=== PATIENT | male | born 1985 ===

== ENCOUNTER 2021-12-28 02:15 | Emergency (ER) | payer SELFPAY ==
[2021-12-28] MEDS ORDERED: ASPIRIN 81 MG TAB CHEW PO ONE ×2 (03:06→05:30)
[2021-12-28] MEDS ORDERED: MORPHINE 4 MG/1 ML INJ IV ONE ×2 (03:11→05:30)
--- NOTE | 2021-12-28 03:38 | XRay Report ---
CHEST 1 VIEW 12/28/2021 3:17 AM INDICATION / CLINICAL INFORMATION: Chest Pain. COMPARISON: None available. FINDINGS: SUPPORT DEVICES: None. HEART / MEDIASTINUM: No significant abnormality. LUNGS / PLEURA: No significant pulmonary or pleural abnormality. No pneumothorax. ADDITIONAL FINDINGS: None IMPRESSION: 1. No acute chest process. Signer Name: Ulises Frost MD Signed: 12/28/2021 3:34 AM Workstation Name: [id number]
[2021-12-28 03:50] LABS: Basophils # (Auto) 0.1 K/mm3 (0.0-0.1); Basophils % (Auto) 0.6 % (0.0-1.8); Eosinophils # (Auto) 0.1 K/mm3 (0.0-0.4); Eosinophils % (Auto) 0.9 % (0.0-4.3); Hematocrit 41.4 % (35.5-45.6); Hemoglobin 13.6 gm/dl (11.8-15.2); Lymphocytes # (Auto) 1.9 K/mm3 (1.2-5.4); Lymphocytes % (Auto) 19.5 % (13.4-35.0); Mean Corpuscular HGB Conc 33 % (32-34); Mean Corpuscular Volume 85 fl (84-94); Monocytes # (Auto) 0.9 K/mm3 (0.0-0.8); Monocytes % (Auto) 8.9 % (0.0-7.3); Platelet Count 269 K/mm3 (140-440); Red Cell Distribution Width 15.1 % (13.2-15.2)
[2021-12-28 04:14] LABS: Alanine Aminotransferase 10 units/L (7-56); Albumin 4.1 g/dL (3.9-5); BUN/Creatinine Ratio 18; Blood Urea Nitrogen 14 mg/dL (9-20); Calcium 9.2 mg/dL (8.4-10.2); Hemolysis Index 10
--- NOTE | 2021-12-28 05:40 | Emergency Department Report ---
ED Chest Pain HPI - General Chief Complaint: Chest Pain Stated Complaint: CHEST PAINS Time Seen by Provider: 12/28/21 03:06 Source: patient Mode of arrival: Ambulatory Limitations: No Limitations - History of Present Illness Initial Comments: Patient is a 36-year-old male presenting to ED with complaint of chest pain and shortness of breath beginning yesterday evening. He describes the pain as a tightness in his left upper chest. States he was seen at [facility] a few weeks ago with complaint of chest pain and at the time had fluid retention in his legs. Was told that he may have congestive heart failure. States he went back to [facility] a few days ago and was told that CHF was unlikely and that he needed to cut down on his salt intake. States his symptoms are worsened with changes in position. He denies any recent travel. States he quit smoking 6 months ago. - Related Data Allergies Allergy/AdvReac Type Severity Reaction Status Date / Time No Known Allergies Allergy Verified 12/28/21 05:25 Heart Score - HEART Score History: Slightly suspicious EKG: Normal Age: < 45 Risk factors: 1-2 risk factors Troponin: < normal limit HEART Score: 1 - EKG Read Time Time EKG Completed: 02:35 EKG Read Time: 02:40 - Critical Actions Critical Actions: 0-3 pts:0.9-1.7%risk of adverse cardiac event.Candidate for discharge ED Review of Systems ROS: Stated complaint: CHEST PAINS Other details as noted in HPI Constitutional: denies: chills, fever Respiratory: shortness of breath. denies: cough Cardiovascular: chest pain Endocrine: no symptoms reported Gastrointestinal: denies: abdominal pain, nausea, diarrhea Genitourinary: denies: urgency, dysuria Skin: denies: rash, lesions Neurological: denies: headache, weakness, paresthesias Psychiatric: denies: anxiety, depression ED Physical Exam - General Limitations: No Limitations General appearance: alert, in no apparent distress - Head Head exam: Present: atraumatic, normocephalic - Respiratory Respiratory exam: Present: normal lung sounds bilaterally. Absent: respiratory distress - Cardiovascular Cardiovascular Exam: Present: regular rate, normal rhythm, normal heart sounds - GI/Abdominal GI/Abdominal exam: Present: soft. Absent: distended, tenderness - Rectal Rectal exam: Present: deferred - Extremities Exam Extremities exam: Absent: tenderness, pedal edema - Neurological Exam Neurological exam: Present: alert, oriented X3 - Psychiatric Psychiatric exam: Present: normal affect, normal mood - Skin Skin exam: Present: warm, dry, intact, normal color ED Course Vital Signs 12/28/21 02:27 Temperature 98.8 F Respiratory 19 Rate Blood Pressure 143/80 [Right] O2 Sat by Pulse 100 Oximetry ED Medical Decision Making - Lab Data Result diagrams: 12/28/21 03:32 12/28/21 03:32 - EKG Data -: EKG Interpreted by Me EKG shows normal: sinus rhythm, axis, intervals, QRS complexes, ST-T waves Rate: normal - EKG Data Interpretation: normal EKG - Radiology Data Radiology results: report reviewed No acute findings on chest x-ray. - Medical Decision Making Work-up including chest x-ray, EKG, basic labs, proBNP and cardiac enzymes are unremarkable. I discussed results with the patient. He is currently experiencing no chest pain or shortness of breath. Heart score is 1. Patient is stable for discharge home with PCP follow-up as needed. Critical care attestation.: If time is entered above; I have spent that time in minutes in the direct care of this critically ill patient, excluding procedure time. ED Disposition Clinical Impression: Acute nonspecific chest pain with low risk of coronary artery disease, Dyspnea Disposition: 01 HOME / SELF CARE / HOMELESS Is pt being admited?: No Condition: Stable Instructions: Chest Pain (ED), Shortness of Breath, Adult, [id number], Nonspecific Chest Pain, Adult, [id number] Additional Instructions: Please follow-up with your regular doctor as needed. You may return if your symptoms worsen. Time of Disposition: 05:42
[2021-12-28 06:24] VITALS: BP 120/59
--- NOTE | 2021-12-28 10:59 | Electrocardiograph Report ---
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
== END 2021-12-28 06:25 | disposition home or self-care (01) ==
LOC: ED 02:15
DX: R07.89 Other chest pain (principal); R06.00 Dyspnea, unspecified; Z79.899 Other long term (current) drug therapy
CPT/HCPCS: 36415; 71045; 80053; 83690; 83880; 84484; 85025; 93005; 96374; 99284; J2270